=== PATIENT | male | born 1975 ===

== ENCOUNTER 2019-02-19 14:39 | Observation (INO) ==
[2019-02-19] MEDS ORDERED: ACETAMINOPHEN 325 MG TABLET PO PRN (17:01)
[2019-02-19] MEDS ORDERED: ONDANSETRON 4 MG/2 ML VIAL IV PRN (17:01)
[2019-02-19 17:20] LABS: Basophils % 0.6 % (0.0-0.8); Eosinophils % 0.5 % (0.00-10.9); Hematocrit 45.1 VOL% (42.0-52.0); Hemoglobin 15.1 GM/DL (14.0-18.0); Immature Granulocytes % 0.5 %; Immature Granulocytes Absolute 0.03 #; Lymphocytes % 15.2 % (21.2-54.2); Mean Corpuscular HGB Conc 33.5 GM/DL (32-36); Mean Corpuscular Volume 90.2 FL (87-102); Mean Platelet Volume 9.8 FL (9.6-12.0); Monocytes % 7.1 % (1.7-12.7); Neutrophils % 76.1 % (38.7-73.9); Platelet Count 168 T/CUMM (130-400); Red Cell Distribution Width 12.9 % (9.3-17.3); White Blood Count 6.6 T/CUMM (4-12)
[2019-02-19 17:44] LABS: Troponin I < 0.015 NG/ML (0.00-0.045)
[2019-02-19] MEDS ORDERED: MAGNESIUM SULF RIDER 4 GM in PREMIX 1 EACH IV PRN (18:06)
[2019-02-19] MEDS ORDERED: MAGNESIUM SULF RIDER 2 GM in PREMIX 1 EACH IV PRN (18:06)
[2019-02-19] MEDS ORDERED: LORazepam 2 MG/1 ML VIAL IV PRN (18:07)
[2019-02-19] MEDS ORDERED: ALBUTEROL 2.5 MG/3 ML NEB RESP TX PRN (18:08)
[2019-02-19 18:21] LABS: Calcium 8.3 MG/DL (8.5-10.1); Osmolality,Calculated 274.5 MOS/KG (273-304)
[2019-02-19] MEDS: amLODIPine 10 MG TABLET PO SCH (18:47)
[2019-02-19 20:18] LABS: Troponin I < 0.015 NG/ML (0.00-0.045)
[2019-02-19] MEDS: ZALEPLON 5 MG CAPSULE PO PRN (23:47)
[2019-02-20 00:08] LABS: Troponin I < 0.015 NG/ML (0.00-0.045)
[2019-02-20 04:12] LABS: Basophils # 0.1 10*3/uL (0.0-0.2); Eosinophils # 0.2 10*3/uL (0.0-0.87); Eosinophils % 2.9 % (0.00-10.9); Hematocrit 44.6 VOL% (42.0-52.0); Immature Granulocytes % 0.4 %; Immature Granulocytes Absolute 0.02 #; Lymphocytes # 1.2 10*3/uL (1.4-4.0); Lymphocytes % 22.5 % (21.2-54.2); Mean Corpuscular HGB Conc 33.6 GM/DL (32-36); Mean Corpuscular Volume 89.9 FL (87-102); Mean Platelet Volume 10.4 FL (9.6-12.0); Monocytes % 8.7 % (1.7-12.7); Neutrophils % 64.5 % (38.7-73.9); Platelet Count 160 T/CUMM (130-400); Red Blood Count 4.96 MC/CUMM (3.8-5.5); Red Cell Distribution Width 12.6 % (9.3-17.3); White Blood Count 5.2 T/CUMM (4-12)
[2019-02-20 04:18] LABS: PT Patient Result 10.6 SECS (9.6-12.2); Partial Thromboplastin Time 26.8 SECS (20.8-36.0)
[2019-02-20 04:40] LABS: Calcium 8.5 MG/DL (8.5-10.1); Osmolality,Calculated 277.4 MOS/KG (273-304); Risk Ratio 3.24; Thyroid Stimulating Hormone 5.59 uIU/ml (0.358-3.74); VLDL CHOLESTEROL 27.4 MG/DL
[2019-02-20 04:44] LABS: Folate 12.2 NG/ML (5.4-24.0)
[2019-02-20] MEDS: PANTOPRAZOLE 40 MG TABLET PO SCH (10:09)
[2019-02-20] MEDS: amLODIPine 10 MG TABLET PO SCH (10:09)
[2019-02-20] MEDS: THIAMINE 100 MG TABLET PO SCH (10:09)
[2019-02-20] MEDS: FOLIC ACID 1 MG TABLET PO SCH (10:09)
[2019-02-20] MEDS: MULTIVITAMIN (CENTRUM) TABLET PO SCH (10:09)
[2019-02-20] MEDS: POTASSIUM CHLORIDE 20 MEQ TABLET PO PRN ×3 (10:09→16:52)
[2019-02-20] MEDS: SODIUM CHLORIDE 0.9% 1,000 ML IV SCH (14:29)
[2019-02-20] MEDS: ZALEPLON 5 MG CAPSULE PO PRN (22:38)
[2019-02-21] MEDS: SODIUM CHLORIDE 0.9% 1,000 ML IV SCH (02:47)
[2019-02-21 04:25] LABS: Basophils % 0.6 % (0.0-0.8); Eosinophils # 0.2 10*3/uL (0.0-0.87); Eosinophils % 3.5 % (0.00-10.9); Hematocrit 42.6 VOL% (42.0-52.0); Hemoglobin 14.2 GM/DL (14.0-18.0); Immature Granulocytes % 0.4 %; Immature Granulocytes Absolute 0.02 #; Lymphocytes # 1.3 10*3/uL (1.4-4.0); Lymphocytes % 24.4 % (21.2-54.2); Mean Corpuscular HGB Conc 33.3 GM/DL (32-36); Mean Corpuscular Volume 90.6 FL (87-102); Mean Platelet Volume 10.6 FL (9.6-12.0); Monocytes % 6.8 % (1.7-12.7); Neutrophils % 64.3 % (38.7-73.9); Platelet Count 154 T/CUMM (130-400); Red Cell Distribution Width 12.6 % (9.3-17.3); White Blood Count 5.2 T/CUMM (4-12)
[2019-02-21 05:00] LABS: Calcium 8.4 MG/DL (8.5-10.1); Osmolality,Calculated 276.4 MOS/KG (273-304)
[2019-02-21 07:42] VITALS: BP 129/66
[2019-02-21] MEDS: PANTOPRAZOLE 40 MG TABLET PO SCH (08:49)
[2019-02-21] MEDS: THIAMINE 100 MG TABLET PO SCH (08:49)
[2019-02-21] MEDS: MULTIVITAMIN (CENTRUM) TABLET PO SCH (08:49)
[2019-02-21] MEDS: amLODIPine 10 MG TABLET PO SCH (08:49)
[2019-02-21] MEDS: FOLIC ACID 1 MG TABLET PO SCH (08:49)
[2019-02-21] MEDS ORDERED: SUMAtriptan 25 MG TABLET PO ONE (10:07)
== END 2019-02-21 13:36 | disposition home or self-care (01) ==
LOC: N.TELES
PROVIDERS: ADMIT Internal Medicine; ATTEND Internal Medicine

== ENCOUNTER 2020-11-27 13:37 | Inpatient (IN) ==
[2020-11-27] MEDS ORDERED: ALBUTEROL 2.5 MG/3 ML NEB RESP TX PRN (15:48)
[2020-11-27] MEDS ORDERED: chlordiazePOXIDE 10 MG CAPSULE PO PRN (15:53)
[2020-11-27] MEDS ORDERED: PNEUMOCOCCAL VACCINE (23 VALENT) 0.5 ML VIAL IM ONE (15:56)
[2020-11-27] MEDS ORDERED: SODIUM CHLORIDE 0.9% 1,000 ML IV PRN (16:00)
[2020-11-27] MEDS ORDERED: POTASSIUM CHLORIDE 20 MEQ TABLET PO ONE (16:08)
[2020-11-27] MEDS: SODIUM CHLORIDE 0.9% 1,000 ML IV SCH (16:09)
[2020-11-27 16:23] LABS: Basophils % 0.5 % (0.0-0.8); Hematocrit 21.3 VOL% (42.0-52.0); Hemoglobin 6.9 GM/DL (14.0-18.0); Immature Granulocytes % 0.5 %; Immature Granulocytes Absolute 0.04 #; Lymphocytes # 0.5 10*3/uL (1.4-4.0); Lymphocytes % 6.6 % (21.2-54.2); Mean Corpuscular HGB Conc 32.4 GM/DL (32-36); Mean Corpuscular Volume 87.7 FL (87-102); Mean Platelet Volume 11.3 FL (9.6-12.0); Monocytes % 5.7 % (1.7-12.7); Neutrophils % 86.7 % (38.7-73.9); Platelet Count 95 T/CUMM (130-400); Red Blood Count 2.43 MC/CUMM (3.8-5.5); Red Cell Distribution Width 15.1 % (9.3-17.3); White Blood Count 7.8 T/CUMM (4-12)
[2020-11-27 16:46] LABS: Albumin 2.6 G/DL (3.4-5.0); Bilirubin,Total 1.3 MG/DL (0.2-1.0); Calcium 7.9 MG/DL (8.5-10.1); Osmolality,Calculated 300.6 MOS/KG (273-304); Potassium 3.7 MMOL/L (3.5-5.1)
[2020-11-27 16:57] LABS: INR 1.2
[2020-11-27] MEDS: MULTIVITAMIN (BEROCCA) TABLET PO SCH (17:37)
[2020-11-27] MEDS: FOLIC ACID INJ 1 MG in SYRINGE 1 EACH IV SCH (17:37)
[2020-11-27] MEDS: PANTOPRAZOLE 40 MG VIAL IV SCH (17:38)
[2020-11-27] MEDS ORDERED: OCTREOTIDE 100 MCG/ML SYRINGE IV ONE (18:43)
[2020-11-27] MEDS: ALBUTEROL 2.5 MG/3 ML NEB RESP TX SCH (19:08)
[2020-11-27] MEDS: OCTREOTIDE 500 MCG in SODIUM CHLORIDE 0.9% 99 ML IV SCH (19:09)
[2020-11-28] MEDS: ALBUTEROL 2.5 MG/3 ML NEB RESP TX SCH ×4 (00:52→18:01)
[2020-11-28 01:07] LABS: Hematocrit 22.1 VOL% (42.0-52.0); Hemoglobin 7.1 GM/DL (14.0-18.0)
[2020-11-28] MEDS: OCTREOTIDE 500 MCG in SODIUM CHLORIDE 0.9% 99 ML IV SCH ×2 (05:15→16:10)
[2020-11-28] MEDS: PANTOPRAZOLE 40 MG VIAL IV SCH ×2 (05:17→16:47)
[2020-11-28 06:00] LABS: Hematocrit 21.7 VOL% (42.0-52.0)
[2020-11-28] MEDS: SODIUM CHLORIDE 0.9% 1,000 ML IV SCH ×3 (07:06→13:09)
[2020-11-28] MEDS ORDERED: SODIUM CHLORIDE 0.9% 1,000 ML IV PRN (07:27)
[2020-11-28] MEDS: THIAMINE 200 MG/2 ML VIAL IV SCH (08:05)
[2020-11-28] MEDS: FOLIC ACID INJ 1 MG in SYRINGE 1 EACH IV SCH (08:05)
[2020-11-28] MEDS: MULTIVITAMIN (BEROCCA) TABLET PO SCH (08:06)
[2020-11-28 09:02] LABS: Calcium 7.7 MG/DL (8.5-10.1); Osmolality,Calculated 300.4 MOS/KG (273-304); Potassium 3.8 MMOL/L (3.5-5.1)
[2020-11-28] MEDS ORDERED: LACTATED RINGERS 1,000 ML IV SCH (09:30)
[2020-11-28] MEDS ORDERED: propofoL 200 MG/20 ML VIAL IV ONE (14:26)
[2020-11-28] MEDS ORDERED: LIDOCAINE 2% 5 ML VIAL ONE (14:26)
[2020-11-28 16:34] LABS: Hematocrit 27.2 VOL% (42.0-52.0)
[2020-11-28 16:36] LABS: Hemoglobin 8.5 GM/DL (14.0-18.0)
[2020-11-29] MEDS: ALBUTEROL 2.5 MG/3 ML NEB RESP TX SCH ×4 (01:34→20:24)
[2020-11-29] MEDS: PANTOPRAZOLE 40 MG VIAL IV SCH ×2 (04:18→17:53)
[2020-11-29 06:16] LABS: Basophils % 0.6 % (0.0-0.8); Eosinophils # 0.1 10*3/uL (0.0-0.87); Eosinophils % 2.8 % (0.00-10.9); Hematocrit 24.3 VOL% (42.0-52.0); Hemoglobin 7.6 GM/DL (14.0-18.0); Immature Granulocytes % 0.4 %; Immature Granulocytes Absolute 0.02 #; Lymphocytes # 0.9 10*3/uL (1.4-4.0); Lymphocytes % 17.1 % (21.2-54.2); Mean Corpuscular HGB Conc 31.3 GM/DL (32-36); Mean Corpuscular Volume 90.7 FL (87-102); Mean Platelet Volume 11.5 FL (9.6-12.0); Monocytes % 7.6 % (1.7-12.7); Neutrophils % 71.5 % (38.7-73.9); Platelet Count 79 T/CUMM (130-400); Red Blood Count 2.68 MC/CUMM (3.8-5.5); Red Cell Distribution Width 14.7 % (9.3-17.3)
[2020-11-29 06:35] LABS: Hypochromasia 1+; Microcytosis 1+; Platelet Estimate Decreased
[2020-11-29 06:43] LABS: Albumin 2.4 G/DL (3.4-5.0); Bilirubin,Total 1.2 MG/DL (0.2-1.0); Calcium 7.3 MG/DL (8.5-10.1); Osmolality,Calculated 284.3 MOS/KG (273-304); Potassium 3.2 MMOL/L (3.5-5.1); Total Protein 5.4 G/DL (6.4-8.2)
[2020-11-29] MEDS: MULTIVITAMIN (BEROCCA) TABLET PO SCH (09:33)
[2020-11-29] MEDS: FOLIC ACID INJ 1 MG in SYRINGE 1 EACH IV SCH (09:34)
[2020-11-29] MEDS: THIAMINE 200 MG/2 ML VIAL IV SCH (09:34)
[2020-11-29] MEDS ORDERED: IBUPROFEN 400 MG TABLET PO PRN (09:36)
[2020-11-29] MEDS ORDERED: CALCIUM GLUCONATE 1,000 MG in SODIUM CHLORIDE 0.9% 100 ML IV ONE (10:00)
[2020-11-29] MEDS ORDERED: POTASSIUM CHLORIDE 20 MEQ TABLET PO ONE (10:30)
[2020-11-29] MEDS: amLODIPine 10 MG TABLET PO SCH (12:50)
[2020-11-29 16:13] LABS: Hemoglobin 8.7 GM/DL (14.0-18.0)
[2020-11-29] MEDS ORDERED: POTASSIUM CHLORIDE RIDER 10 MEQ/100 ML PREMIX IV PRN (18:35)
[2020-11-29] MEDS: MORPHINE 4 MG/1 ML VIAL IV PRN (23:00)
[2020-11-30] MEDS: ALBUTEROL 2.5 MG/3 ML NEB RESP TX SCH ×4 (00:44→19:21)
[2020-11-30] MEDS: PANTOPRAZOLE 40 MG VIAL IV SCH ×3 (03:51→21:05)
[2020-11-30 04:59] LABS: Basophils % 0.4 % (0.0-0.8); Eosinophils # 0.2 10*3/uL (0.0-0.87); Eosinophils % 2.5 % (0.00-10.9); Hematocrit 26.7 VOL% (42.0-52.0); Hemoglobin 8.8 GM/DL (14.0-18.0); Immature Granulocytes % 0.4 %; Immature Granulocytes Absolute 0.03 #; Lymphocytes # 1.1 10*3/uL (1.4-4.0); Lymphocytes % 15.7 % (21.2-54.2); Mean Corpuscular Volume 87.5 FL (87-102); Mean Platelet Volume 11.5 FL (9.6-12.0); Monocytes % 7.5 % (1.7-12.7); NRBC # 0.02 10*3/uL; Neutrophils % 73.5 % (38.7-73.9); Platelet Count 85 T/CUMM (130-400); Red Blood Count 3.05 MC/CUMM (3.8-5.5); Red Cell Distribution Width 14.4 % (9.3-17.3); White Blood Count 6.7 T/CUMM (4-12)
[2020-11-30 05:18] LABS: Hypochromasia 1+
[2020-11-30 05:19] LABS: Microcytosis 1+; Platelet Estimate Decreased
[2020-11-30 05:27] LABS: Albumin 2.6 G/DL (3.4-5.0); Bilirubin,Total 1.1 MG/DL (0.2-1.0); Calcium 7.7 MG/DL (8.5-10.1); Osmolality,Calculated 275.5 MOS/KG (273-304); Potassium 3.4 MMOL/L (3.5-5.1); Total Protein 5.8 G/DL (6.4-8.2)
[2020-11-30] MEDS: MORPHINE 4 MG/1 ML VIAL IV PRN ×2 (06:00→21:05)
[2020-11-30] MEDS: ONDANSETRON 4 MG/2 ML VIAL IV PRN ×2 (06:01→21:04)
[2020-11-30] MEDS: MULTIVITAMIN (BEROCCA) TABLET PO SCH (08:54)
[2020-11-30] MEDS: amLODIPine 10 MG TABLET PO SCH (08:55)
[2020-11-30] MEDS: FOLIC ACID INJ 1 MG in SYRINGE 1 EACH IV SCH (08:55)
[2020-11-30] MEDS: THIAMINE 200 MG/2 ML VIAL IV SCH (08:55)
[2020-11-30] MEDS ORDERED: amLODIPine 10 MG TABLET PO SCH (09:00)
[2020-11-30] MEDS ORDERED: POTASSIUM CHLORIDE 20 MEQ TABLET PO PRN (10:35)
[2020-12-01] MEDS: ALBUTEROL 2.5 MG/3 ML NEB RESP TX SCH ×4 (00:33→19:41)
[2020-12-01 05:21] LABS: Basophils % 0.4 % (0.0-0.8); Eosinophils # 0.1 10*3/uL (0.0-0.87); Eosinophils % 1.5 % (0.00-10.9); Hematocrit 26.5 VOL% (42.0-52.0); Hemoglobin 8.9 GM/DL (14.0-18.0); Immature Granulocytes % 0.4 %; Immature Granulocytes Absolute 0.03 #; Lymphocytes % 12.9 % (21.2-54.2); Mean Corpuscular HGB Conc 33.6 GM/DL (32-36); Mean Corpuscular Volume 88.9 FL (87-102); Mean Platelet Volume 11.6 FL (9.6-12.0); Monocytes % 8.2 % (1.7-12.7); Neutrophils % 76.6 % (38.7-73.9); Platelet Count 87 T/CUMM (130-400); Red Blood Count 2.98 MC/CUMM (3.8-5.5); Red Cell Distribution Width 14.7 % (9.3-17.3); White Blood Count 7.8 T/CUMM (4-12)
[2020-12-01 05:29] LABS: INR 1.1; PT Patient Result 12.3 SECS (10.5-12.0)
[2020-12-01 05:46] LABS: Hypochromasia 1+; Microcytosis 1+; Platelet Estimate Decreased
[2020-12-01 05:54] LABS: Albumin 2.6 G/DL (3.4-5.0); Bilirubin,Total 1.1 MG/DL (0.2-1.0); Calcium 8.2 MG/DL (8.5-10.1); Potassium 3.8 MMOL/L (3.5-5.1)
[2020-12-01] MEDS: amLODIPine 10 MG TABLET PO SCH (09:24)
[2020-12-01] MEDS: MULTIVITAMIN (BEROCCA) TABLET PO SCH (09:25)
[2020-12-01] MEDS: PANTOPRAZOLE 40 MG VIAL IV SCH ×2 (09:26→21:05)
[2020-12-01] MEDS: THIAMINE 200 MG/2 ML VIAL IV SCH (09:31)
[2020-12-01] MEDS: FOLIC ACID INJ 1 MG in SYRINGE 1 EACH IV SCH (09:33)
[2020-12-01] MEDS: PIPERACILLIN/TAZOBACTAM 3,375 MG in SODIUM CHLORIDE 0.9% 100 ML IV SCH ×2 (16:54→23:06)
[2020-12-01] MEDS: ONDANSETRON 4 MG/2 ML VIAL IV PRN (21:06)
[2020-12-01] MEDS: MORPHINE 4 MG/1 ML VIAL IV PRN (21:06)
[2020-12-02] MEDS: ALBUTEROL 2.5 MG/3 ML NEB RESP TX SCH ×2 (00:06→07:52)
[2020-12-02 05:40] LABS: Basophils % 0.4 % (0.0-0.8); Eosinophils # 0.1 10*3/uL (0.0-0.87); Eosinophils % 1.1 % (0.00-10.9); Hematocrit 25.9 VOL% (42.0-52.0); Hemoglobin 8.3 GM/DL (14.0-18.0); Immature Granulocytes % 0.5 %; Immature Granulocytes Absolute 0.04 #; Lymphocytes # 1.1 10*3/uL (1.4-4.0); Lymphocytes % 13.7 % (21.2-54.2); Mean Corpuscular Volume 90.2 FL (87-102); Mean Platelet Volume 11.5 FL (9.6-12.0); Monocytes % 11.7 % (1.7-12.7); Neutrophils % 72.6 % (38.7-73.9); Platelet Count 103 T/CUMM (130-400); Red Blood Count 2.87 MC/CUMM (3.8-5.5); Red Cell Distribution Width 14.8 % (9.3-17.3); White Blood Count 8.2 T/CUMM (4-12)
[2020-12-02 05:59] LABS: Albumin 2.4 G/DL (3.4-5.0); Bilirubin,Total 0.9 MG/DL (0.2-1.0); Calcium 7.9 MG/DL (8.5-10.1); Potassium 3.7 MMOL/L (3.5-5.1)
[2020-12-02 06:24] LABS: Anisocytosis 1+; Platelet Estimate Adequate
[2020-12-02] MEDS: PANTOPRAZOLE 40 MG VIAL IV SCH ×2 (09:11→21:19)
[2020-12-02] MEDS: THIAMINE 200 MG/2 ML VIAL IV SCH (09:11)
[2020-12-02] MEDS: amLODIPine 10 MG TABLET PO SCH (09:12)
[2020-12-02] MEDS: MULTIVITAMIN (BEROCCA) TABLET PO SCH (09:12)
[2020-12-02] MEDS: PIPERACILLIN/TAZOBACTAM 3,375 MG in SODIUM CHLORIDE 0.9% 100 ML IV SCH (09:12)
[2020-12-02] MEDS: FOLIC ACID INJ 1 MG in SYRINGE 1 EACH IV SCH (13:40)
[2020-12-03] MEDS: ALBUTEROL 2.5 MG/3 ML NEB RESP TX SCH ×6 (02:05→19:14)
[2020-12-03 06:00] LABS: Basophils % 0.3 % (0.0-0.8); Eosinophils # 0.1 10*3/uL (0.0-0.87); Eosinophils % 1.9 % (0.00-10.9); Hematocrit 25.6 VOL% (42.0-52.0); Hemoglobin 8.4 GM/DL (14.0-18.0); Immature Granulocytes % 0.5 %; Immature Granulocytes Absolute 0.04 #; Lymphocytes # 0.9 10*3/uL (1.4-4.0); Lymphocytes % 12.3 % (21.2-54.2); Mean Corpuscular HGB Conc 32.8 GM/DL (32-36); Mean Corpuscular Volume 89.5 FL (87-102); Mean Platelet Volume 11.5 FL (9.6-12.0); Monocytes % 11.4 % (1.7-12.7); Neutrophils % 73.6 % (38.7-73.9); Platelet Count 105 T/CUMM (130-400); Red Blood Count 2.86 MC/CUMM (3.8-5.5); Red Cell Distribution Width 14.7 % (9.3-17.3); White Blood Count 7.5 T/CUMM (4-12)
[2020-12-03 06:28] LABS: Albumin 2.5 G/DL (3.4-5.0); Bilirubin,Total 0.8 MG/DL (0.2-1.0); Osmolality,Calculated 276.7 MOS/KG (273-304); Potassium 3.4 MMOL/L (3.5-5.1); Total Protein 6.3 G/DL (6.4-8.2)
[2020-12-03] MEDS: MULTIVITAMIN (BEROCCA) TABLET PO SCH (09:31)
[2020-12-03] MEDS: FOLIC ACID INJ 1 MG in SYRINGE 1 EACH IV SCH (09:31)
[2020-12-03] MEDS: amLODIPine 10 MG TABLET PO SCH (09:32)
[2020-12-03] MEDS: THIAMINE 200 MG/2 ML VIAL IV SCH (09:32)
[2020-12-03] MEDS: PANTOPRAZOLE 40 MG VIAL IV SCH ×2 (09:32→21:06)
[2020-12-03] MEDS: LACTULOSE 20 GM/30 ML UDCUP PO SCH ×2 (15:29→21:07)
[2020-12-03] MEDS: metroNIDAZOLE INJ 500 MG/100 ML PREMIX IV SCH ×2 (15:31→21:06)
[2020-12-03] MEDS: cefTRIAXone 1,000 MG in SODIUM CHLORIDE 0.9% 100 ML IV SCH (16:50)
[2020-12-03 18:19] LABS: Bilirubin,Urine Negative (Negative); Blood, Urine Negative (Negative); Glucose,Urine (UA) Negative (Negative); Ketones,Urine Negative (Negative); Mucus,Urine Occasional /LPF (Occasional); Nitrite,Urine Negative (Negative); Protein,Urine Negative; RBC,Urine <1 /HPF (0-4); Squamous Epithelial Cell,Urine Occasional /HPF (0-10); Urine Appearance CLEAR (Clear); Urine Color Yellow (Yellow); Urine Urobilinogen < 2.0 EU/DL (0.2-1.0)
[2020-12-04] MEDS: ALBUTEROL 2.5 MG/3 ML NEB RESP TX SCH ×4 (01:07→21:29)
[2020-12-04] MEDS: metroNIDAZOLE INJ 500 MG/100 ML PREMIX IV SCH ×3 (06:06→21:04)
[2020-12-04 06:07] LABS: Basophils % 0.5 % (0.0-0.8); Eosinophils # 0.1 10*3/uL (0.0-0.87); Eosinophils % 1.9 % (0.00-10.9); Hematocrit 26.6 VOL% (42.0-52.0); Hemoglobin 8.7 GM/DL (14.0-18.0); Immature Granulocytes % 0.5 %; Immature Granulocytes Absolute 0.03 #; Lymphocytes # 0.9 10*3/uL (1.4-4.0); Lymphocytes % 14.5 % (21.2-54.2); Mean Corpuscular HGB Conc 32.7 GM/DL (32-36); Mean Corpuscular Volume 89.9 FL (87-102); Mean Platelet Volume 11.3 FL (9.6-12.0); Monocytes % 11.6 % (1.7-12.7); Platelet Count 147 T/CUMM (130-400); Red Blood Count 2.96 MC/CUMM (3.8-5.5); Red Cell Distribution Width 14.7 % (9.3-17.3); White Blood Count 6.5 T/CUMM (4-12)
[2020-12-04 06:21] LABS: Albumin 2.5 G/DL (3.4-5.0); Bilirubin,Total 1.1 MG/DL (0.2-1.0); Osmolality,Calculated 277.4 MOS/KG (273-304); Potassium 3.6 MMOL/L (3.5-5.1); Total Protein 6.5 G/DL (6.4-8.2)
[2020-12-04] MEDS: MULTIVITAMIN (BEROCCA) TABLET PO SCH (09:59)
[2020-12-04] MEDS: THIAMINE 200 MG/2 ML VIAL IV SCH (09:59)
[2020-12-04] MEDS: LACTULOSE 20 GM/30 ML UDCUP PO SCH ×2 (09:59→21:04)
[2020-12-04] MEDS: FOLIC ACID INJ 1 MG in SYRINGE 1 EACH IV SCH (10:00)
[2020-12-04] MEDS: amLODIPine 10 MG TABLET PO SCH (10:00)
[2020-12-04] MEDS: PANTOPRAZOLE 40 MG VIAL IV SCH ×2 (10:00→21:04)
[2020-12-04] MEDS: cefTRIAXone 1,000 MG in SODIUM CHLORIDE 0.9% 100 ML IV SCH (17:30)
[2020-12-05] MEDS: metroNIDAZOLE INJ 500 MG/100 ML PREMIX IV SCH (05:14)
[2020-12-05] MEDS: ALBUTEROL 2.5 MG/3 ML NEB RESP TX SCH ×3 (05:48→12:50)
[2020-12-05 07:36] LABS: Basophils % 0.6 % (0.0-0.8); Eosinophils # 0.2 10*3/uL (0.0-0.87); Eosinophils % 2.4 % (0.00-10.9); Hematocrit 28.7 VOL% (42.0-52.0); Hemoglobin 9.5 GM/DL (14.0-18.0); Immature Granulocytes % 0.5 %; Immature Granulocytes Absolute 0.03 #; Lymphocytes # 0.9 10*3/uL (1.4-4.0); Lymphocytes % 14.9 % (21.2-54.2); Mean Corpuscular HGB Conc 33.1 GM/DL (32-36); Mean Corpuscular Volume 88.9 FL (87-102); Mean Platelet Volume 10.8 FL (9.6-12.0); Neutrophils % 70.6 % (38.7-73.9); Platelet Count 177 T/CUMM (130-400); Red Blood Count 3.23 MC/CUMM (3.8-5.5); Red Cell Distribution Width 14.4 % (9.3-17.3); White Blood Count 6.3 T/CUMM (4-12)
[2020-12-05 08:11] VITALS: BP 121/64
[2020-12-05 08:17] LABS: Calcium 8.5 MG/DL (8.5-10.1); Osmolality,Calculated 272.7 MOS/KG (273-304); Potassium 3.7 MMOL/L (3.5-5.1)
[2020-12-05] MEDS: FOLIC ACID INJ 1 MG in SYRINGE 1 EACH IV SCH (08:25)
[2020-12-05] MEDS: PANTOPRAZOLE 40 MG VIAL IV SCH (08:25)
[2020-12-05] MEDS: THIAMINE 200 MG/2 ML VIAL IV SCH (08:25)
[2020-12-05] MEDS: amLODIPine 10 MG TABLET PO SCH (10:05)
[2020-12-05] MEDS: MULTIVITAMIN (BEROCCA) TABLET PO SCH (10:05)
[2020-12-05] MEDS: LACTULOSE 20 GM/30 ML UDCUP PO SCH (10:05)
== END 2020-12-05 13:40 | disposition home or self-care (01) | DRG 378 ==
LOC: N.CC 15:22 → SUATTDRO 15:22 → N.4E 11-29 13:10
PROVIDERS: ADMIT Family Medicine; ATTEND Internal Medicine

== ENCOUNTER 2020-12-11 23:37 | Inpatient (IN) ==
[2020-12-12] MEDS ORDERED: PANTOPRAZOLE INJ 80 MG in SODIUM CHLORIDE 0.9% 100 ML IV ONE (00:24)
[2020-12-12] MEDS ORDERED: ONDANSETRON 4 MG/2 ML VIAL IV STA (00:24)
[2020-12-12] MEDS ORDERED: SODIUM CHLORIDE 0.9% 1,000 ML IV STA (00:24)
[2020-12-12 01:59] LABS: Basophils # 0.1 10*3/uL (0.0-0.2); Basophils % 0.6 % (0.0-0.8); Eosinophils % 0.3 % (0.00-10.9); Immature Granulocytes % 0.8 %; Immature Granulocytes Absolute 0.06 #; Lymphocytes # 1.3 10*3/uL (1.4-4.0); Lymphocytes % 16.9 % (21.2-54.2); Mean Corpuscular HGB Conc 31.8 GM/DL (32-36); Mean Platelet Volume 10.9 FL (9.6-12.0); Monocytes % 10.7 % (1.7-12.7); Neutrophils % 70.7 % (38.7-73.9); Platelet Count 222 T/CUMM (130-400); Red Blood Count 2.53 MC/CUMM (3.8-5.5); Red Cell Distribution Width 15.1 % (9.3-17.3); White Blood Count 7.8 T/CUMM (4-12)
[2020-12-12 02:22] LABS: Albumin 2.9 G/DL (3.4-5.0); Bilirubin,Total 0.4 MG/DL (0.2-1.0); Calcium 8.1 MG/DL (8.5-10.1); Osmolality,Calculated 297.6 MOS/KG (273-304); Potassium 3.3 MMOL/L (3.5-5.1)
[2020-12-12] MEDS: PANTOPRAZOLE INJ 200 MG in SODIUM CHLORIDE 0.9% 250 ML IV SCH (03:00)
[2020-12-12] MEDS ORDERED: ONDANSETRON 4 MG/2 ML VIAL IV PRN (04:37)
[2020-12-12] MEDS ORDERED: DEXTROSE 50% 25 GM/50 ML VIAL IV PRN (04:37)
[2020-12-12] MEDS ORDERED: GLUCAGON 1 MG VIAL IM PRN (04:37)
[2020-12-12] MEDS ORDERED: SODIUM CHLORIDE 0.9% 1,000 ML IV PRN ×2 (04:40→06:43)
[2020-12-12] MEDS ORDERED: PANTOPRAZOLE INJ 200 MG in SODIUM CHLORIDE 0.9% 250 ML IV SCH (05:00)
[2020-12-12] MEDS ORDERED: SODIUM CHLORIDE 0.9% 1,000 ML IV SCH (05:00)
[2020-12-12] MEDS ORDERED: POTASSIUM CHLORIDE RIDER 10 MEQ/100 ML PREMIX IV PRN (08:34)
[2020-12-12] MEDS ORDERED: LORazepam 2 MG/1 ML VIAL IV PRN (08:56)
[2020-12-12] MEDS: amLODIPine 10 MG TABLET PO SCH (10:36)
[2020-12-12] MEDS: MULTIVITAMIN (CENTRUM) TABLET PO SCH (10:36)
[2020-12-12] MEDS: FOLIC ACID 1 MG TABLET PO SCH (10:36)
[2020-12-12] MEDS: LACTULOSE 20 GM/30 ML UDCUP PO SCH ×3 (10:36→21:27)
[2020-12-12] MEDS: SODIUM CHLOR 0.45% KCL 20 MEQ 20 MEQ/1,000 ML BAG IV SCH ×2 (10:37→23:26)
[2020-12-12] MEDS: THIAMINE 100 MG TABLET PO SCH (10:37)
[2020-12-12 16:26] LABS: Hematocrit 21.1 VOL% (42.0-52.0); Hemoglobin 6.6 GM/DL (14.0-18.0)
[2020-12-12] MEDS: ACETAMINOPHEN 325 MG TABLET PO PRN (23:27)
[2020-12-13 00:41] LABS: Hematocrit 21.6 VOL% (42.0-52.0); Hemoglobin 6.9 GM/DL (14.0-18.0)
[2020-12-13 05:39] LABS: Basophils % 0.8 % (0.0-0.8); Eosinophils # 0.1 10*3/uL (0.0-0.87); Eosinophils % 2.7 % (0.00-10.9); Hematocrit 21.9 VOL% (42.0-52.0); Hemoglobin 6.7 GM/DL (14.0-18.0); Immature Granulocytes % 0.6 %; Immature Granulocytes Absolute 0.03 #; Lymphocytes # 0.9 10*3/uL (1.4-4.0); Lymphocytes % 17.5 % (21.2-54.2); Mean Corpuscular HGB Conc 30.6 GM/DL (32-36); Mean Platelet Volume 10.6 FL (9.6-12.0); Monocytes % 7.6 % (1.7-12.7); Neutrophils % 70.8 % (38.7-73.9); Platelet Count 155 T/CUMM (130-400); Red Blood Count 2.46 MC/CUMM (3.8-5.5); Red Cell Distribution Width 15.5 % (9.3-17.3); White Blood Count 5.1 T/CUMM (4-12)
[2020-12-13 06:14] LABS: Albumin 2.6 G/DL (3.4-5.0); Bilirubin,Total 0.8 MG/DL (0.2-1.0); Potassium 3.2 MMOL/L (3.5-5.1); Total Protein 5.9 G/DL (6.4-8.2)
[2020-12-13] MEDS ORDERED: SODIUM CHLORIDE 0.9% 1,000 ML IV PRN (07:35)
[2020-12-13] MEDS ORDERED: MAGNESIUM SULF RIDER 2 GM/50 ML PREMIX IV PRN (07:38)
[2020-12-13] MEDS ORDERED: MAGNESIUM SULF RIDER 4 GM/100 ML PREMIX IV PRN (07:38)
[2020-12-13] MEDS: MULTIVITAMIN (CENTRUM) TABLET PO SCH (09:36)
[2020-12-13] MEDS: LACTULOSE 20 GM/30 ML UDCUP PO SCH ×3 (09:36→22:18)
[2020-12-13] MEDS: amLODIPine 10 MG TABLET PO SCH (09:36)
[2020-12-13] MEDS: FOLIC ACID 1 MG TABLET PO SCH (09:36)
[2020-12-13] MEDS: THIAMINE 100 MG TABLET PO SCH (09:36)
[2020-12-13] MEDS: SODIUM CHLOR 0.45% KCL 20 MEQ 20 MEQ/1,000 ML BAG IV SCH (17:24)
[2020-12-13] MEDS: PANTOPRAZOLE INJ 200 MG in SODIUM CHLORIDE 0.9% 250 ML IV SCH (23:54)
[2020-12-14 02:51] LABS: Basophils % 0.5 % (0.0-0.8); Eosinophils # 0.2 10*3/uL (0.0-0.87); Hematocrit 26.5 VOL% (42.0-52.0); Hemoglobin 8.6 GM/DL (14.0-18.0); Immature Granulocytes % 0.7 %; Immature Granulocytes Absolute 0.05 #; Lymphocytes % 13.4 % (21.2-54.2); Mean Corpuscular HGB Conc 32.5 GM/DL (32-36); Mean Corpuscular Volume 86.6 FL (87-102); Mean Platelet Volume 10.6 FL (9.6-12.0); NRBC # 0.02 10*3/uL; Neutrophils % 77.4 % (38.7-73.9); Platelet Count 147 T/CUMM (130-400); Red Blood Count 3.06 MC/CUMM (3.8-5.5); Red Cell Distribution Width 15.2 % (9.3-17.3); White Blood Count 7.6 T/CUMM (4-12)
[2020-12-14 03:11] LABS: Albumin 2.6 G/DL (3.4-5.0); Bilirubin,Total 0.8 MG/DL (0.20-1.00); Calcium 7.7 MG/DL (8.5-10.1); Osmolality,Calculated 279.4 MOS/KG (273-304); Potassium 3.2 MMOL/L (3.5-5.1); Total Protein 6.4 G/DL (6.4-8.2)
[2020-12-14] MEDS: ACETAMINOPHEN 325 MG TABLET PO PRN (05:39)
[2020-12-14] MEDS: SODIUM CHLOR 0.45% KCL 20 MEQ 20 MEQ/1,000 ML BAG IV SCH ×3 (06:38→13:13)
[2020-12-14] MEDS: FOLIC ACID 1 MG TABLET PO SCH (09:17)
[2020-12-14] MEDS: LACTULOSE 20 GM/30 ML UDCUP PO SCH ×3 (09:17→20:28)
[2020-12-14] MEDS: PANTOPRAZOLE INJ 200 MG in SODIUM CHLORIDE 0.9% 250 ML IV SCH (09:17)
[2020-12-14] MEDS: amLODIPine 10 MG TABLET PO SCH (09:17)
[2020-12-14] MEDS: THIAMINE 100 MG TABLET PO SCH (09:17)
[2020-12-14] MEDS: MULTIVITAMIN (CENTRUM) TABLET PO SCH (09:17)
[2020-12-14] MEDS: PANTOPRAZOLE 40 MG TABLET PO SCH (09:45)
[2020-12-14] MEDS ORDERED: GLUCAGON 1 MG VIAL IM PRN (10:51)
[2020-12-14] MEDS ORDERED: DEXTROSE 50% 25 GM/50 ML VIAL IV PRN (10:51)
[2020-12-15] MEDS: SODIUM CHLOR 0.45% KCL 20 MEQ 20 MEQ/1,000 ML BAG IV SCH (04:10)
[2020-12-15] MEDS: THIAMINE 100 MG TABLET PO SCH (09:07)
[2020-12-15] MEDS: FOLIC ACID 1 MG TABLET PO SCH (09:07)
[2020-12-15] MEDS: PANTOPRAZOLE 40 MG TABLET PO SCH (09:07)
[2020-12-15] MEDS: MULTIVITAMIN (CENTRUM) TABLET PO SCH (09:07)
[2020-12-15] MEDS: LACTULOSE 20 GM/30 ML UDCUP PO SCH (09:07)
[2020-12-15] MEDS: amLODIPine 10 MG TABLET PO SCH (09:07)
[2020-12-15 09:37] LABS: Basophils % 0.3 % (0.0-0.8); Eosinophils # 0.2 10*3/uL (0.0-0.87); Eosinophils % 2.5 % (0.00-10.9); Hematocrit 29.7 VOL% (42.0-52.0); Hemoglobin 9.7 GM/DL (14.0-18.0); Immature Granulocytes % 0.6 %; Immature Granulocytes Absolute 0.06 #; Lymphocytes # 1.2 10*3/uL (1.4-4.0); Mean Corpuscular HGB Conc 32.7 GM/DL (32-36); Mean Corpuscular Volume 85.8 FL (87-102); Monocytes % 5.5 % (1.7-12.7); Neutrophils % 79.1 % (38.7-73.9); Platelet Count 165 T/CUMM (130-400); Red Blood Count 3.46 MC/CUMM (3.8-5.5); Red Cell Distribution Width 15.5 % (9.3-17.3); White Blood Count 9.6 T/CUMM (4-12)
[2020-12-15 09:56] LABS: Bilirubin,Total 0.8 MG/DL (0.20-1.00); Calcium 8.2 MG/DL (8.5-10.1); Osmolality,Calculated 269.2 MOS/KG (273-304); Potassium 3.6 MMOL/L (3.5-5.1); Total Protein 7.1 G/DL (6.4-8.2)
[2020-12-15] MEDS ORDERED: SODIUM CHLORIDE 0.65% NASAL SPRAY 45 ML BOTTLE BOTH NARES PRN (10:37)
[2020-12-15] MEDS ORDERED: PANTOPRAZOLE 40 MG TABLET PO SCH (11:00)
[2020-12-15 11:57] VITALS: BP 116/62
== END 2020-12-15 15:23 | disposition home or self-care (01) | DRG 377 ==
LOC: EDUNIT# → EDBD → N.ED 23:37 → N.EDINP 12-12 04:37 → SUATTDRO 12-12 04:37 → N.4E 12-12 08:56
PROVIDERS: ADMIT Hospitalist; ATTEND Emergency Medicine

== ENCOUNTER 2021-01-24 17:48 | Inpatient (IN) ==
[2021-01-24 19:20] LABS: Basophils % 0.8 % (0.0-0.8); Eosinophils # 0.1 10*3/uL (0.0-0.87); Hematocrit 20.3 VOL% (42.0-52.0); Immature Granulocytes % 0.4 %; Immature Granulocytes Absolute 0.02 #; Lymphocytes # 0.6 10*3/uL (1.4-4.0); Lymphocytes % 12.5 % (21.2-54.2); Mean Corpuscular Volume 90.6 FL (87-102); Mean Platelet Volume 10.9 FL (9.6-12.0); Monocytes % 8.1 % (1.7-12.7); Neutrophils % 77.2 % (38.7-73.9); Platelet Count 177 T/CUMM (130-400); Red Blood Count 2.24 MC/CUMM (3.8-5.5); Red Cell Distribution Width 21.1 % (9.3-17.3)
[2021-01-24 19:24] LABS: Hemoglobin 6.3 GM/DL (14.0-18.0)
[2021-01-24 19:31] LABS: Albumin 2.5 G/DL (3.4-5.0); Bilirubin,Total 4.1 MG/DL (0.20-1.00); Calcium 7.8 MG/DL (8.5-10.1); Osmolality,Calculated 288.3 MOS/KG (273-304); Potassium 3.5 MMOL/L (3.5-5.1)
[2021-01-24] MEDS ORDERED: SODIUM CHLORIDE 0.9% 1,000 ML IV STA (19:46)
[2021-01-24] MEDS ORDERED: ONDANSETRON 4 MG/2 ML VIAL IV STA (19:46)
[2021-01-24 22:25] LABS: Bilirubin,Urine Negative (Negative); Blood, Urine Negative (Negative); Glucose,Urine (UA) Negative (Negative); Hyaline Casts,Urine 6 /LPF (0-3); Ketones,Urine 5 mg/dL (Negative); Mucus,Urine Occasional /LPF (Occasional); Nitrite,Urine Negative (Negative); Protein,Urine Negative; RBC,Urine 1 /HPF (0-4); Urine Appearance CLEAR (Clear); Urine Color Amber (Yellow); Urine Specific Gravity 1.017 (1.001-1.035)
[2021-01-24 22:30] LABS: Barbiturates Screen,Urine Negative (Negative); Benzodiazepines Screen,Urine Negative (Negative); Cannabinoid Screen,Urine Negative (Negative); Opiate Screen,Urine Negative (Negative); Phencyclidine Screen,Urine Negative (Negative)
[2021-01-24] MEDS ORDERED: SODIUM CHLORIDE 0.9% 1,000 ML IV PRN (23:40)
[2021-01-24] MEDS ORDERED: PANTOPRAZOLE 40 MG VIAL IV STA (23:46)
[2021-01-25] MEDS ORDERED: DEXTROSE 50% 25 GM/50 ML VIAL IV PRN (02:46)
[2021-01-25] MEDS ORDERED: GLUCAGON 1 MG VIAL IM PRN (02:46)
[2021-01-25] MEDS ORDERED: ONDANSETRON 4 MG/2 ML VIAL IV PRN (02:46)
[2021-01-25] MEDS ORDERED: MAGNESIUM SULF RIDER 2 GM/50 ML PREMIX IV PRN (02:46)
[2021-01-25] MEDS ORDERED: SODIUM CHLORIDE 0.9% 1,000 ML IV PRN ×2 (03:47→16:15)
[2021-01-25] MEDS: MORPHINE 2 MG/1 ML SYRINGE IV PRN (04:28)
[2021-01-25] MEDS ORDERED: LORazepam 2 MG/1 ML VIAL IV PRN (06:00)
[2021-01-25 06:26] LABS: INR 1.2; PT Patient Result 12.8 SECS (10.5-12.0)
[2021-01-25 06:50] LABS: Albumin 2.3 G/DL (3.4-5.0); Bilirubin,Total 4.2 MG/DL (0.20-1.00); Calcium 7.9 MG/DL (8.5-10.1); Osmolality,Calculated 278.5 MOS/KG (273-304); Potassium 3.3 MMOL/L (3.5-5.1); Total Protein 6.4 G/DL (6.4-8.2)
[2021-01-25 07:10] LABS: Basophils % 0.8 % (0.0-0.8); Eosinophils # 0.1 10*3/uL (0.0-0.87); Eosinophils % 1.3 % (0.00-10.9); Hematocrit 18.4 VOL% (42.0-52.0); Immature Granulocytes % 0.8 %; Immature Granulocytes Absolute 0.04 #; Lymphocytes # 0.9 10*3/uL (1.4-4.0); Lymphocytes % 18.1 % (21.2-54.2); Mean Corpuscular HGB Conc 32.6 GM/DL (32-36); Mean Corpuscular Volume 88.5 FL (87-102); Mean Platelet Volume 11.3 FL (9.6-12.0); Monocytes % 9.7 % (1.7-12.7); Neutrophils % 69.3 % (38.7-73.9); Platelet Count 150 T/CUMM (130-400); Red Blood Count 2.08 MC/CUMM (3.8-5.5); Red Cell Distribution Width 21.2 % (9.3-17.3); White Blood Count 4.8 T/CUMM (4-12)
[2021-01-25] MEDS: INSULIN REGULAR 100 UNIT/ML SUBCUT SCH ×4 (08:53→22:13)
[2021-01-25] MEDS: POTASSIUM CHLORIDE RIDER 10 MEQ/100 ML PREMIX IV PRN ×3 (09:04→15:50)
[2021-01-25] MEDS: PANTOPRAZOLE 40 MG VIAL IV SCH ×2 (09:04→21:07)
[2021-01-25 09:22] LABS: Hemoglobin 7.2 GM/DL (14.0-18.0)
[2021-01-25 13:37] LABS: Hepatitis B Core IgM Quant 0.11 Index; Hepatitis B Surface Ag Quant < 0.10 Index; Hepatitis B Surface Ag Result Non-Reactive (NonReactive); Hepatitis C Virus Ab Quant < 0.02 Index; Hepatitis C Virus Ab Result Non-Reactive (NonReactive)
[2021-01-25] MEDS ORDERED: MAGNESIUM SULF RIDER 4 GM/100 ML PREMIX IV ONE (14:00)
[2021-01-25] MEDS: LACTULOSE 20 GM/30 ML UDCUP PO SCH ×2 (14:29→21:07)
[2021-01-25 14:57] LABS: Hematocrit 22.5 VOL% (42.0-52.0)
[2021-01-25] MEDS: PIPERACILLIN/TAZOBACTAM 3,375 MG in SODIUM CHLORIDE 0.9% 100 ML IV SCH ×2 (16:53→23:53)
[2021-01-26] MEDS: POTASSIUM CHLORIDE RIDER 10 MEQ/100 ML PREMIX IV PRN (01:11)
[2021-01-26] MEDS: THIAMINE INJ 100 MG, FOLIC ACID INJ 1 MG, MULTIVITAMIN INJ 10 ML in SODIUM CHLORIDE 0.9... IV SCH ×2 (02:18→16:08)
[2021-01-26] MEDS: PIPERACILLIN/TAZOBACTAM 3,375 MG in SODIUM CHLORIDE 0.9% 100 ML IV SCH ×3 (06:16→23:12)
[2021-01-26 07:21] LABS: Basophils # 0.1 10*3/uL (0.0-0.2); Basophils % 1.4 % (0.0-0.8); Eosinophils # 0.2 10*3/uL (0.0-0.87); Eosinophils % 3.4 % (0.00-10.9); Hematocrit 28.4 VOL% (42.0-52.0); Immature Granulocytes % 0.8 %; Immature Granulocytes Absolute 0.05 #; Lymphocytes % 15.5 % (21.2-54.2); Mean Corpuscular HGB Conc 31.7 GM/DL (32-36); Mean Platelet Volume 11.2 FL (9.6-12.0); Monocytes % 7.7 % (1.7-12.7); Neutrophils % 71.2 % (38.7-73.9); Platelet Count 150 T/CUMM (130-400); Red Cell Distribution Width 18.3 % (9.3-17.3)
[2021-01-26 07:22] LABS: Red Blood Count 3.19 MC/CUMM (3.8-5.5); White Blood Count 6.5 T/CUMM (4-12)
[2021-01-26 07:27] LABS: INR 1.2; PT Patient Result 12.8 SECS (10.5-12.0)
[2021-01-26 07:36] LABS: Calcium 7.8 MG/DL (8.5-10.1); Osmolality,Calculated 270.8 MOS/KG (273-304); Potassium 3.9 MMOL/L (3.5-5.1)
[2021-01-26 07:39] LABS: Albumin 2.4 G/DL (3.4-5.0); Bilirubin,Total 5.9 MG/DL (0.20-1.00); Calcium 8.1 MG/DL (8.5-10.1); Potassium 3.8 MMOL/L (3.5-5.1); Total Protein 6.7 G/DL (6.4-8.2)
[2021-01-26] MEDS ORDERED: LACTATED RINGERS 1,000 ML IV SCH (08:00)
[2021-01-26] MEDS: PANTOPRAZOLE 40 MG VIAL IV SCH ×2 (08:31→20:16)
[2021-01-26] MEDS: LACTULOSE 20 GM/30 ML UDCUP PO SCH ×3 (08:32→20:17)
[2021-01-26] MEDS: INSULIN REGULAR 100 UNIT/ML SUBCUT SCH ×4 (08:32→22:23)
[2021-01-26] MEDS ORDERED: LIDOCAINE 2% 5 ML VIAL ONE (14:13)
[2021-01-26] MEDS ORDERED: propofoL 200 MG/20 ML VIAL IV ONE ×2 (14:13→14:27)
[2021-01-26] MEDS: SODIUM CHLORIDE 0.45% 1,000 ML IV SCH (15:23)
[2021-01-27] MEDS: MORPHINE 2 MG/1 ML SYRINGE IV PRN (01:03)
[2021-01-27 06:40] LABS: Basophils # 0.1 10*3/uL (0.0-0.2); Basophils % 0.8 % (0.0-0.8); Eosinophils # 0.2 10*3/uL (0.0-0.87); Eosinophils % 3.6 % (0.00-10.9); Hematocrit 27.6 VOL% (42.0-52.0); Hemoglobin 8.9 GM/DL (14.0-18.0); Immature Granulocytes % 0.5 %; Immature Granulocytes Absolute 0.03 #; Lymphocytes % 15.2 % (21.2-54.2); Mean Corpuscular HGB Conc 32.2 GM/DL (32-36); Mean Corpuscular Volume 89.3 FL (87-102); Mean Platelet Volume 10.5 FL (9.6-12.0); Monocytes % 9.4 % (1.7-12.7); Neutrophils % 70.5 % (38.7-73.9); Platelet Count 135 T/CUMM (130-400); Red Blood Count 3.09 MC/CUMM (3.8-5.5); Red Cell Distribution Width 17.9 % (9.3-17.3); White Blood Count 6.6 T/CUMM (4-12)
[2021-01-27] MEDS: THIAMINE INJ 100 MG, FOLIC ACID INJ 1 MG, MULTIVITAMIN INJ 10 ML in SODIUM CHLORIDE 0.9... IV SCH (06:41)
[2021-01-27 06:54] LABS: INR 1.1; PT Patient Result 12.4 SECS (10.5-12.0)
[2021-01-27 06:58] LABS: Albumin 2.3 G/DL (3.4-5.0); Bilirubin,Total 4.7 MG/DL (0.20-1.00); Calcium 7.8 MG/DL (8.5-10.1); Potassium 3.3 MMOL/L (3.5-5.1); Total Protein 6.6 G/DL (6.4-8.2)
[2021-01-27] MEDS: INSULIN REGULAR 100 UNIT/ML SUBCUT SCH (09:15)
[2021-01-27] MEDS: SODIUM CHLORIDE 0.45% 1,000 ML IV SCH ×2 (09:16→09:17)
[2021-01-27] MEDS: PIPERACILLIN/TAZOBACTAM 3,375 MG in SODIUM CHLORIDE 0.9% 100 ML IV SCH ×3 (09:40→23:51)
[2021-01-27] MEDS: PANTOPRAZOLE 40 MG VIAL IV SCH ×2 (09:40→20:56)
[2021-01-27] MEDS: LACTULOSE 20 GM/30 ML UDCUP PO SCH ×4 (09:44→20:55)
[2021-01-28] MEDS: THIAMINE INJ 100 MG, FOLIC ACID INJ 1 MG, MULTIVITAMIN INJ 10 ML in SODIUM CHLORIDE 0.9... IV SCH (03:23)
[2021-01-28 05:28] LABS: Basophils % 0.6 % (0.0-0.8); Eosinophils # 0.2 10*3/uL (0.0-0.87); Eosinophils % 3.8 % (0.00-10.9); Hematocrit 27.8 VOL% (42.0-52.0); Hemoglobin 8.9 GM/DL (14.0-18.0); Immature Granulocytes % 0.5 %; Immature Granulocytes Absolute 0.03 #; Lymphocytes # 1.1 10*3/uL (1.4-4.0); Lymphocytes % 17.1 % (21.2-54.2); Mean Corpuscular Volume 91.1 FL (87-102); Mean Platelet Volume 10.6 FL (9.6-12.0); Monocytes % 7.8 % (1.7-12.7); Neutrophils % 70.2 % (38.7-73.9); Platelet Count 146 T/CUMM (130-400); Red Blood Count 3.05 MC/CUMM (3.8-5.5); Red Cell Distribution Width 18.2 % (9.3-17.3); White Blood Count 6.4 T/CUMM (4-12)
[2021-01-28 05:53] LABS: Albumin 2.4 G/DL (3.4-5.0); Bilirubin,Total 3.8 MG/DL (0.20-1.00); Calcium 8.2 MG/DL (8.5-10.1); Potassium 3.3 MMOL/L (3.5-5.1); Total Protein 6.8 G/DL (6.4-8.2)
[2021-01-28] MEDS: PIPERACILLIN/TAZOBACTAM 3,375 MG in SODIUM CHLORIDE 0.9% 100 ML IV SCH ×3 (06:24→23:03)
[2021-01-28] MEDS: LACTULOSE 20 GM/30 ML UDCUP PO SCH ×3 (10:13→21:43)
[2021-01-28] MEDS: PANTOPRAZOLE 40 MG VIAL IV SCH ×2 (10:14→21:50)
[2021-01-28] MEDS: POTASSIUM CHLORIDE RIDER 10 MEQ/100 ML PREMIX IV PRN ×4 (10:15→14:20)
[2021-01-29] MEDS: PIPERACILLIN/TAZOBACTAM 3,375 MG in SODIUM CHLORIDE 0.9% 100 ML IV SCH ×3 (08:37→23:39)
[2021-01-29] MEDS: THIAMINE INJ 100 MG, FOLIC ACID INJ 1 MG, MULTIVITAMIN INJ 10 ML in SODIUM CHLORIDE 0.9... IV SCH (08:37)
[2021-01-29] MEDS: LACTULOSE 20 GM/30 ML UDCUP PO SCH ×3 (09:01→23:35)
[2021-01-29] MEDS: PANTOPRAZOLE 40 MG VIAL IV SCH ×2 (09:03→23:40)
[2021-01-30 05:34] LABS: Basophils # 0.1 10*3/uL (0.0-0.2); Basophils % 0.9 % (0.0-0.8); Eosinophils # 0.2 10*3/uL (0.0-0.87); Eosinophils % 3.2 % (0.00-10.9); Hematocrit 30.6 VOL% (42.0-52.0); Hemoglobin 9.5 GM/DL (14.0-18.0); Immature Granulocytes % 0.6 %; Immature Granulocytes Absolute 0.04 #; Lymphocytes # 1.1 10*3/uL (1.4-4.0); Lymphocytes % 16.5 % (21.2-54.2); Mean Corpuscular Volume 91.1 FL (87-102); Monocytes % 9.4 % (1.7-12.7); Neutrophils % 69.4 % (38.7-73.9); Platelet Count 143 T/CUMM (130-400); Red Blood Count 3.36 MC/CUMM (3.8-5.5); Red Cell Distribution Width 18.1 % (9.3-17.3); White Blood Count 6.5 T/CUMM (4-12)
[2021-01-30 06:36] LABS: Albumin 2.6 G/DL (3.4-5.0); Bilirubin,Total 2.6 MG/DL (0.20-1.00); Calcium 8.4 MG/DL (8.5-10.1); Osmolality,Calculated 272.8 MOS/KG (273-304); Potassium 3.6 MMOL/L (3.5-5.1); Total Protein 7.4 G/DL (6.4-8.2)
[2021-01-30] MEDS: LACTULOSE 20 GM/30 ML UDCUP PO SCH ×3 (10:26→22:42)
[2021-01-30] MEDS: THIAMINE INJ 100 MG, FOLIC ACID INJ 1 MG, MULTIVITAMIN INJ 10 ML in SODIUM CHLORIDE 0.9... IV SCH (10:26)
[2021-01-30] MEDS: PIPERACILLIN/TAZOBACTAM 3,375 MG in SODIUM CHLORIDE 0.9% 100 ML IV SCH ×3 (10:26→22:42)
[2021-01-30] MEDS: PANTOPRAZOLE 40 MG VIAL IV SCH (10:33)
[2021-01-30] MEDS: PANTOPRAZOLE 40 MG TABLET PO SCH (21:39)
[2021-01-31] MEDS: PIPERACILLIN/TAZOBACTAM 3,375 MG in SODIUM CHLORIDE 0.9% 100 ML IV SCH (06:44)
[2021-01-31 06:46] LABS: Basophils # 0.1 10*3/uL (0.0-0.2); Basophils % 0.9 % (0.0-0.8); Eosinophils # 0.2 10*3/uL (0.0-0.87); Eosinophils % 3.1 % (0.00-10.9); Hematocrit 29.9 VOL% (42.0-52.0); Hemoglobin 9.4 GM/DL (14.0-18.0); Immature Granulocytes % 0.7 %; Immature Granulocytes Absolute 0.04 #; Lymphocytes % 17.6 % (21.2-54.2); Mean Corpuscular HGB Conc 31.4 GM/DL (32-36); Mean Corpuscular Volume 90.1 FL (87-102); Mean Platelet Volume 11.2 FL (9.6-12.0); Monocytes % 9.4 % (1.7-12.7); Neutrophils % 68.3 % (38.7-73.9); Platelet Count 151 T/CUMM (130-400); Red Blood Count 3.32 MC/CUMM (3.8-5.5); White Blood Count 5.9 T/CUMM (4-12)
[2021-01-31 07:09] VITALS: BP 132/72
[2021-01-31 07:11] LABS: Calcium 8.4 MG/DL (8.5-10.1); Osmolality,Calculated 276.5 MOS/KG (273-304); Potassium 3.9 MMOL/L (3.5-5.1)
[2021-01-31] MEDS: LACTULOSE 20 GM/30 ML UDCUP PO SCH (08:47)
[2021-01-31] MEDS: PANTOPRAZOLE 40 MG TABLET PO SCH (08:47)
[2021-01-31] MEDS ORDERED: FOLIC ACID 1 MG TABLET PO SCH (09:00)
[2021-01-31] MEDS ORDERED: THIAMINE 100 MG TABLET PO SCH (09:00)
[2021-01-31] MEDS ORDERED: MULTIVITAMIN (CENTRUM) TABLET PO SCH (09:00)
== END 2021-01-31 11:33 | disposition home or self-care (01) | DRG 432 ==
LOC: EDBD → EDUNIT# → N.ED 17:48 → SUATTDRO 23:35 → N.EDINP 23:35 → N.5E 01-25 00:41
PROVIDERS: ADMIT Internal Medicine; ATTEND Internal Medicine
PROC: EGDWEBL (ICD-10-PCS; 2021-01-26 13:50)

== ENCOUNTER 2021-02-12 08:47 | Inpatient (IN) ==
[2021-02-12] MEDS ORDERED: SODIUM CHLORIDE 0.9% 1,000 ML IV PRN (13:40)
[2021-02-12] MEDS ORDERED: DEXTROSE 50% 25 GM/50 ML VIAL IV PRN (13:40)
[2021-02-12] MEDS ORDERED: GLUCAGON 1 MG VIAL IM PRN (13:40)
[2021-02-12] MEDS ORDERED: ACETAMINOPHEN 325 MG TABLET PO PRN (13:49)
[2021-02-12] MEDS ORDERED: ONDANSETRON 4 MG/2 ML VIAL IV PRN (13:49)
[2021-02-12] MEDS ORDERED: POTASSIUM CHLORIDE RIDER 10 MEQ/100 ML PREMIX IV PRN (14:13)
[2021-02-12] MEDS ORDERED: MAGNESIUM SULF RIDER 2 GM/50 ML PREMIX IV PRN (14:14)
[2021-02-12] MEDS ORDERED: MAGNESIUM SULF RIDER 4 GM/100 ML PREMIX IV PRN (14:14)
[2021-02-12 14:21] LABS: Basophils % 0.6 % (0.0-0.8); Eosinophils # 0.2 10*3/uL (0.0-0.87); Eosinophils % 2.5 % (0.00-10.9); Hematocrit 18.7 VOL% (42.0-52.0); Immature Granulocytes Absolute 0.07 #; Lymphocytes % 14.2 % (21.2-54.2); Mean Corpuscular Volume 90.8 FL (87-102); Mean Platelet Volume 10.4 FL (9.6-12.0); Monocytes % 6.8 % (1.7-12.7); NRBC # 0.02 10*3/uL; Neutrophils % 74.9 % (38.7-73.9); Platelet Count 131 T/CUMM (130-400); Red Blood Count 2.06 MC/CUMM (3.8-5.5); Red Cell Distribution Width 16.8 % (9.3-17.3); White Blood Count 6.8 T/CUMM (4-12)
[2021-02-12 14:22] LABS: Hemoglobin 5.8 GM/DL (14.0-18.0)
[2021-02-12 15:00] LABS: Albumin 2.6 G/DL (3.4-5.0); Calcium 7.6 MG/DL (8.5-10.1); Osmolality,Calculated 284.3 MOS/KG (273-304); Potassium 3.8 MMOL/L (3.5-5.1); Total Protein 6.8 G/DL (6.4-8.2)
[2021-02-12] MEDS: PANTOPRAZOLE 40 MG VIAL IV SCH (16:41)
[2021-02-12] MEDS: SODIUM CHLORIDE 0.9% 1,000 ML IV SCH (16:42)
[2021-02-12] MEDS: MULTIVITAMIN (CENTRUM) TABLET PO SCH (17:39)
[2021-02-12] MEDS: FOLIC ACID 1 MG TABLET PO SCH (17:40)
[2021-02-12] MEDS: ALBUTEROL/IPRATROPIUM 3 ML NEB RESP TX SCH (19:17)
[2021-02-13 00:49] LABS: Hematocrit 23.4 VOL% (42.0-52.0); Hemoglobin 7.3 GM/DL (14.0-18.0)
[2021-02-13 05:49] LABS: Basophils % 0.4 % (0.0-0.8); Eosinophils # 0.2 10*3/uL (0.0-0.87); Eosinophils % 2.6 % (0.00-10.9); Hematocrit 22.8 VOL% (42.0-52.0); Hemoglobin 7.1 GM/DL (14.0-18.0); Immature Granulocytes % 0.9 %; Immature Granulocytes Absolute 0.06 #; Lymphocytes # 0.9 10*3/uL (1.4-4.0); Lymphocytes % 13.4 % (21.2-54.2); Mean Corpuscular HGB Conc 31.1 GM/DL (32-36); Mean Corpuscular Volume 89.4 FL (87-102); Mean Platelet Volume 11.3 FL (9.6-12.0); Monocytes % 9.4 % (1.7-12.7); NRBC # 0.02 10*3/uL; Neutrophils % 73.3 % (38.7-73.9); Platelet Count 132 T/CUMM (130-400); Red Blood Count 2.55 MC/CUMM (3.8-5.5); Red Cell Distribution Width 16.7 % (9.3-17.3); White Blood Count 6.9 T/CUMM (4-12)
[2021-02-13] MEDS: ALBUTEROL/IPRATROPIUM 3 ML NEB RESP TX SCH (07:05)
[2021-02-13] MEDS: LACTATED RINGERS 1,000 ML IV SCH (08:10)
[2021-02-13] MEDS ORDERED: LIDOCAINE 2% 5 ML VIAL ONE (08:37)
[2021-02-13] MEDS ORDERED: propofoL 200 MG/20 ML VIAL IV ONE ×2 (08:37→08:47)
[2021-02-13] MEDS: FOLIC ACID 1 MG TABLET PO SCH (10:45)
[2021-02-13] MEDS: PANTOPRAZOLE 40 MG VIAL IV SCH (10:45)
[2021-02-13] MEDS: MULTIVITAMIN (CENTRUM) TABLET PO SCH (10:45)
[2021-02-13] MEDS: THIAMINE 200 MG/2 ML VIAL IM SCH (10:46)
[2021-02-13] MEDS: chlordiazePOXIDE 10 MG CAPSULE PO SCH ×3 (10:47→21:24)
[2021-02-13] MEDS: OCTREOTIDE 100 MCG/ML SYRINGE IV SCH ×2 (10:47→20:25)
[2021-02-13] MEDS: SODIUM CHLORIDE 0.9% 1,000 ML IV SCH ×2 (10:47→21:24)
[2021-02-13] MEDS: NICOTINE 21 MG/24 HR PATCH TRANSDERM SCH (12:22)
[2021-02-13] MEDS ORDERED: BISACODYL 5 MG TABLET PO ONE (15:00)
[2021-02-13] MEDS ORDERED: POLYETHYLENE GLYCOL POWDER 255 GM BOTTLE PO ONE (16:00)
[2021-02-14] MEDS: SODIUM CHLORIDE 0.9% 1,000 ML IV SCH ×3 (02:21→22:26)
[2021-02-14] MEDS ORDERED: POLYETHYLENE GLYCOL POWDER 255 GM BOTTLE PO ONE (05:00)
[2021-02-14 06:03] LABS: Basophils % 0.5 % (0.0-0.8); Eosinophils # 0.2 10*3/uL (0.0-0.87); Eosinophils % 2.7 % (0.00-10.9); Hematocrit 23.1 VOL% (42.0-52.0); Hemoglobin 7.4 GM/DL (14.0-18.0); Immature Granulocytes % 0.8 %; Immature Granulocytes Absolute 0.05 #; Lymphocytes # 0.9 10*3/uL (1.4-4.0); Lymphocytes % 15.1 % (21.2-54.2); Mean Corpuscular Volume 89.5 FL (87-102); Mean Platelet Volume 10.8 FL (9.6-12.0); Monocytes % 7.2 % (1.7-12.7); NRBC # 0.02 10*3/uL; Neutrophils % 73.7 % (38.7-73.9); Platelet Count 129 T/CUMM (130-400); Red Blood Count 2.58 MC/CUMM (3.8-5.5); Red Cell Distribution Width 16.9 % (9.3-17.3)
[2021-02-14 06:21] LABS: Albumin 2.7 G/DL (3.4-5.0); Bilirubin,Direct 0.91 MG/DL (0.0-0.20); Bilirubin,Indirect 0.6 MG/DL (0.0-1.0); Bilirubin,Total 1.5 MG/DL (0.20-1.00); Total Protein 6.9 G/DL (6.4-8.2)
[2021-02-14 06:27] LABS: Albumin 2.7 G/DL (3.4-5.0); Bilirubin,Total 2.1 MG/DL (0.20-1.00); Calcium 7.9 MG/DL (8.5-10.1); Total Protein 6.8 G/DL (6.4-8.2)
[2021-02-14 06:28] LABS: Osmolality,Calculated 276.4 MOS/KG (273-304); Potassium 3.4 MMOL/L (3.5-5.1)
[2021-02-14 06:41] LABS: Hypochromasia 1+
[2021-02-14 06:42] LABS: Microcytosis 1+; Ovalocytes Slight; Platelet Estimate Adequate; Polychromasia Slight
[2021-02-14] MEDS: chlordiazePOXIDE 10 MG CAPSULE PO SCH ×3 (09:10→22:07)
[2021-02-14] MEDS: OCTREOTIDE 100 MCG/ML SYRINGE IV SCH (09:56)
[2021-02-14] MEDS: PANTOPRAZOLE 40 MG VIAL IV SCH ×2 (10:13→22:08)
[2021-02-14] MEDS: LACTATED RINGERS 1,000 ML IV SCH (12:29)
[2021-02-14] MEDS: LACTATED RINGERS 500 ML IV SCH (12:30)
[2021-02-14] MEDS ORDERED: PHENYLEPHRINE 1 MG/10 ML SYRINGE IV ONE (13:55)
[2021-02-14] MEDS ORDERED: LIDOCAINE 2% 5 ML VIAL ONE (13:55)
[2021-02-14] MEDS ORDERED: propofoL 200 MG/20 ML VIAL IV ONE (13:55)
[2021-02-14] MEDS: THIAMINE 200 MG/2 ML VIAL IM SCH (15:40)
[2021-02-14] MEDS: NICOTINE 21 MG/24 HR PATCH TRANSDERM SCH (15:40)
[2021-02-14] MEDS: MULTIVITAMIN (CENTRUM) TABLET PO SCH (17:12)
[2021-02-14] MEDS: FOLIC ACID 1 MG TABLET PO SCH (17:12)
[2021-02-14 20:04] LABS: Hemoglobin 7.5 GM/DL (14.0-18.0)
[2021-02-15 07:26] LABS: Hematocrit 23.8 VOL% (42.0-52.0); Hemoglobin 7.5 GM/DL (14.0-18.0)
[2021-02-15 07:57] LABS: Basophils % 0.5 % (0.0-0.8); Eosinophils # 0.2 10*3/uL (0.0-0.87); Eosinophils % 2.7 % (0.00-10.9); Hematocrit 23.6 VOL% (42.0-52.0); Hemoglobin 7.4 GM/DL (14.0-18.0); Immature Granulocytes % 0.7 %; Immature Granulocytes Absolute 0.04 #; Lymphocytes # 0.9 10*3/uL (1.4-4.0); Lymphocytes % 15.7 % (21.2-54.2); Mean Corpuscular HGB Conc 31.4 GM/DL (32-36); Mean Corpuscular Volume 89.7 FL (87-102); Mean Platelet Volume 10.9 FL (9.6-12.0); Monocytes % 8.2 % (1.7-12.7); Neutrophils % 72.2 % (38.7-73.9); Platelet Count 133 T/CUMM (130-400); Red Blood Count 2.63 MC/CUMM (3.8-5.5); Red Cell Distribution Width 16.7 % (9.3-17.3); White Blood Count 5.9 T/CUMM (4-12)
[2021-02-15 08:07] LABS: Osmolality,Calculated 277.4 MOS/KG (273-304); Potassium 3.7 MMOL/L (3.5-5.1)
[2021-02-15] MEDS: LACTATED RINGERS 1,000 ML IV SCH (08:31)
[2021-02-15] MEDS: LACTATED RINGERS 500 ML IV SCH (08:31)
[2021-02-15] MEDS: chlordiazePOXIDE 10 MG CAPSULE PO SCH ×2 (08:31→16:27)
[2021-02-15] MEDS: NICOTINE 21 MG/24 HR PATCH TRANSDERM SCH (08:32)
[2021-02-15] MEDS: MULTIVITAMIN (CENTRUM) TABLET PO SCH (08:32)
[2021-02-15] MEDS: THIAMINE 200 MG/2 ML VIAL IM SCH (08:33)
[2021-02-15] MEDS: FOLIC ACID 1 MG TABLET PO SCH (08:33)
[2021-02-15] MEDS: PANTOPRAZOLE 40 MG VIAL IV SCH (08:34)
[2021-02-15 08:54] LABS: Anisocytosis 1+
[2021-02-15 08:55] LABS: Hypochromasia Slight
[2021-02-15 08:57] LABS: Polychromasia Slight
[2021-02-15 08:58] LABS: Platelet Estimate Decreased
[2021-02-15 10:54] LABS: Hematocrit 23.3 VOL% (42.0-52.0); Hemoglobin 7.4 GM/DL (14.0-18.0)
[2021-02-15 12:54] VITALS: BP 116/49
== END 2021-02-15 16:30 | disposition home or self-care (01) | DRG 381 ==
LOC: N.4E 11:05 → SUATTDRO 11:05
PROVIDERS: ADMIT Internal Medicine; ATTEND Internal Medicine

== ENCOUNTER 2022-04-15 09:47 | Inpatient (IN) ==
[2022-04-15] MEDS ORDERED: PANTOPRAZOLE INJ 80 MG in SODIUM CHLORIDE 0.9% 100 ML IV STA (10:09)
[2022-04-15] MEDS ORDERED: OCTREOTIDE 100 MCG/ML SYRINGE IV STA (10:09)
[2022-04-15] MEDS ORDERED: ONDANSETRON 4 MG/2 ML VIAL IV STA (10:09)
[2022-04-15 10:16] LABS: Basophils % 0.3 % (0.0-0.8); Hematocrit 19.8 VOL% (42.0-52.0); Immature Granulocytes % 0.8 %; Immature Granulocytes Absolute 0.06 #; Lymphocytes # 0.9 10*3/uL (1.4-4.0); Lymphocytes % 12.2 % (21.2-54.2); Mean Corpuscular HGB Conc 30.3 GM/DL (32-36); Mean Corpuscular Volume 76.4 FL (87-102); Mean Platelet Volume 11.5 FL (9.6-12.0); Monocytes # 0.5 10*3/uL (0.11-0.8); Monocytes % 6.7 % (1.7-12.7); Platelet Count 118 T/CUMM (130-400); Red Blood Count 2.59 MC/CUMM (3.8-5.5); Red Cell Distribution Width 18.3 % (9.3-17.3); White Blood Count 7.1 T/CUMM (4-12)
[2022-04-15] MEDS ORDERED: PANTOPRAZOLE 40 MG VIAL IV ONE (10:23)
[2022-04-15 10:24] LABS: INR 1.2; PT Patient Result 13.1 SECS (10.1-12.1); Partial Thromboplastin Time 26.8 SECS (23.7-32.9)
[2022-04-15] MEDS ORDERED: SODIUM CHLORIDE 0.9% 1,000 ML IV PRN ×2 (10:40→22:50)
[2022-04-15] MEDS: OCTREOTIDE 500 MCG in SODIUM CHLORIDE 0.9% 100 ML IV SCH ×2 (10:56→20:53)
[2022-04-15 11:04] LABS: Albumin 2.9 G/DL (3.4-5.0); Bilirubin,Total 0.8 MG/DL (0.20-1.00); Calcium 8.3 MG/DL (8.5-10.1); Osmolality,Calculated 303.6 MOS/KG (273-304); Potassium 3.5 MMOL/L (3.5-5.1); Total Protein 6.6 G/DL (6.4-8.2)
[2022-04-15] MEDS ORDERED: DOCUSATE SODIUM 100 MG CAPSULE PO PRN (12:00)
[2022-04-15] MEDS ORDERED: ONDANSETRON 4 MG/2 ML VIAL IV PRN (12:00)
[2022-04-15] MEDS ORDERED: LACTATED RINGERS 1,000 ML IV SCH ×2 (12:00→13:00)
[2022-04-15] MEDS ORDERED: ALUMINUM/MAGNES/SIMETH MAX STR 30 ML UDCUP PO PRN (12:00)
[2022-04-15] MEDS ORDERED: LACTULOSE 20 GM/30 ML UDCUP PO PRN (12:00)
[2022-04-15] MEDS ORDERED: ACETAMINOPHEN 325 MG TABLET PO PRN (12:00)
[2022-04-15] MEDS ORDERED: MAGNESIUM SULF RIDER 4 GM/100 ML PREMIX IV PRN (12:06)
[2022-04-15] MEDS ORDERED: MAGNESIUM SULF RIDER 2 GM/50 ML PREMIX IV PRN (12:06)
[2022-04-15] MEDS ORDERED: LORazepam 2 MG/1 ML VIAL IV PRN (12:07)
[2022-04-15] MEDS ORDERED: GLUCAGON 1 MG VIAL IM PRN (12:13)
[2022-04-15] MEDS ORDERED: DEXTROSE 10% 250 ML BAG IV PRN (12:14)
[2022-04-15 13:52] LABS: Hepatitis B Core IgM Quant 0.14 Index; Hepatitis B Surface Ag Quant < 0.10 Index; Hepatitis B Surface Ag Result Non-Reactive (NonReactive); Hepatitis C Virus Ab Quant 0.07 Index; Hepatitis C Virus Ab Result Non-Reactive (NonReactive)
[2022-04-15 13:58] LABS: Hematocrit 18.6 VOL% (42.0-52.0)
[2022-04-15 14:00] LABS: Hemoglobin 5.7 GM/DL (14.0-18.0)
[2022-04-15] MEDS ORDERED: INFLUENZA VIRUS VACCINE 0.5 ML SYRINGE IM ONE (14:04)
[2022-04-15] MEDS: INSULIN LISPRO 100 UNIT/ML SUBCUT SCH ×2 (20:07→23:15)
[2022-04-15] MEDS: THIAMINE 100 MG TABLET PO SCH (20:53)
[2022-04-15 22:31] LABS: Hematocrit 19.5 VOL% (42.0-52.0)
[2022-04-15 22:35] LABS: Hemoglobin 6.3 GM/DL (14.0-18.0)
[2022-04-16 05:23] LABS: Basophils % 0.4 % (0.0-0.8); Eosinophils # 0.1 10*3/uL (0.0-0.87); Eosinophils % 1.4 % (0.00-10.9); Hematocrit 23.5 VOL% (42.0-52.0); Hemoglobin 7.5 GM/DL (14.0-18.0); Immature Granulocytes % 0.4 %; Immature Granulocytes Absolute 0.02 #; Lymphocytes # 0.9 10*3/uL (1.4-4.0); Mean Corpuscular HGB Conc 31.9 GM/DL (32-36); Mean Corpuscular Volume 78.9 FL (87-102); Mean Platelet Volume 11.2 FL (9.6-12.0); Monocytes # 0.3 10*3/uL (0.11-0.8); Monocytes % 6.2 % (1.7-12.7); Neutrophils % 73.6 % (38.7-73.9); Platelet Count 95 T/CUMM (130-400); Red Blood Count 2.98 MC/CUMM (3.8-5.5); Red Cell Distribution Width 16.7 % (9.3-17.3)
[2022-04-16 05:44] LABS: Hypochromia Slight; Microcytosis Slight; Platelet Estimate Decreased
[2022-04-16 06:38] LABS: Bacteria,Urine Occasional /HPF (Few); Bilirubin,Urine Negative (Negative); Blood, Urine Negative (Negative); Glucose,Urine (UA) Negative (Negative); Ketones,Urine Negative (Negative); Mucus,Urine Occasional /LPF (Occasional); Nitrite,Urine Negative (Negative); Protein,Urine Negative (Negative); RBC,Urine 1 /HPF (0-4); Squamous Epithelial Cell,Urine Occasional /HPF (0-10); Urine Appearance CLEAR (Clear); Urine Color Yellow (Yellow); Urine Specific Gravity 1.018 (1.001-1.035); Urine Urobilinogen < 2.0 eU/dL (<2.0)
[2022-04-16] MEDS: OCTREOTIDE 500 MCG in SODIUM CHLORIDE 0.9% 100 ML IV SCH ×2 (06:40→18:45)
[2022-04-16] MEDS: INSULIN LISPRO 100 UNIT/ML SUBCUT SCH ×3 (06:41→18:46)
[2022-04-16 07:11] LABS: Albumin 2.8 G/DL (3.4-5.0); Bilirubin,Total 1.3 MG/DL (0.20-1.00); Calcium 7.9 MG/DL (8.5-10.1); Osmolality,Calculated 289.1 MOS/KG (273-304); Potassium 3.4 MMOL/L (3.5-5.1); Risk Ratio 3.17; Thyroid Stimulating Hormone 0.474 uIU/ml (0.358-3.74); Total Protein 6.3 G/DL (6.4-8.2); VLDL Cholesterol 20.4 MG/DL
[2022-04-16 07:46] LABS: Barbiturates Screen,Urine Negative (Negative); Benzodiazepines Screen,Urine Negative (Negative); Cannabinoid Screen,Urine Negative (Negative); Opiate Screen,Urine Negative (Negative); Phencyclidine Screen,Urine Negative (Negative)
[2022-04-16 10:09] LABS: Hematocrit 22.2 VOL% (42.0-52.0); Hemoglobin 7.2 GM/DL (14.0-18.0)
[2022-04-16] MEDS: LACTATED RINGERS 1,000 ML IV SCH (10:37)
[2022-04-16] MEDS ORDERED: propofoL 200 MG/20 ML VIAL IV ONE (10:49)
[2022-04-16] MEDS ORDERED: LIDOCAINE 2% 5 ML VIAL ONE (10:49)
[2022-04-16] MEDS: THIAMINE 100 MG TABLET PO SCH ×2 (12:23→21:03)
[2022-04-16] MEDS: PANTOPRAZOLE INJ 200 MG in SODIUM CHLORIDE 0.9% 250 ML IV SCH ×3 (12:24→12:33)
[2022-04-16 15:08] LABS: Hematocrit 22.4 VOL% (42.0-52.0); Hemoglobin 7.1 GM/DL (14.0-18.0)
[2022-04-16] MEDS ORDERED: MAGNESIUM SULF RIDER 2 GM/50 ML PREMIX IV PRN (16:03)
[2022-04-16] MEDS ORDERED: MAGNESIUM SULF RIDER 4 GM/100 ML PREMIX IV PRN (16:03)
[2022-04-16] MEDS ORDERED: POTASSIUM CHLORIDE 20 MEQ TABLET PO PRN (16:03)
[2022-04-16 22:00] LABS: Hematocrit 22.7 VOL% (42.0-52.0); Hemoglobin 7.4 GM/DL (14.0-18.0)
[2022-04-17] MEDS: INSULIN LISPRO 100 UNIT/ML SUBCUT SCH ×4 (00:39→17:19)
[2022-04-17 06:06] LABS: Basophils % 0.2 % (0.0-0.8); Eosinophils # 0.1 10*3/uL (0.0-0.87); Eosinophils % 2.5 % (0.00-10.9); Hematocrit 22.8 VOL% (42.0-52.0); Hemoglobin 7.4 GM/DL (14.0-18.0); Immature Granulocytes % 0.4 %; Immature Granulocytes Absolute 0.02 #; Lymphocytes # 0.9 10*3/uL (1.4-4.0); Lymphocytes % 17.6 % (21.2-54.2); Mean Corpuscular HGB Conc 32.5 GM/DL (32-36); Mean Corpuscular Volume 79.2 FL (87-102); Mean Platelet Volume 11.2 FL (9.6-12.0); Monocytes # 0.3 10*3/uL (0.11-0.8); Monocytes % 5.6 % (1.7-12.7); Neutrophils % 73.7 % (38.7-73.9); Platelet Count 93 T/CUMM (130-400); Red Blood Count 2.88 MC/CUMM (3.8-5.5); Red Cell Distribution Width 16.5 % (9.3-17.3); White Blood Count 4.8 T/CUMM (4-12)
[2022-04-17 06:30] LABS: Hypochromia 1+; Microcytosis 1+; Platelet Estimate Decreased
[2022-04-17 06:41] LABS: Albumin 2.7 G/DL (3.4-5.0); Bilirubin,Total 0.9 MG/DL (0.20-1.00); Calcium 8.2 MG/DL (8.5-10.1); Osmolality,Calculated 281.4 MOS/KG (273-304); Potassium 3.5 MMOL/L (3.5-5.1); Total Protein 6.1 G/DL (6.4-8.2)
[2022-04-17] MEDS: PANTOPRAZOLE 40 MG VIAL IV SCH ×2 (09:40→20:50)
[2022-04-17] MEDS: OCTREOTIDE 500 MCG in SODIUM CHLORIDE 0.9% 100 ML IV SCH ×2 (09:41→20:47)
[2022-04-17] MEDS: LACTATED RINGERS 1,000 ML IV SCH (11:26)
[2022-04-17] MEDS: THIAMINE 100 MG TABLET PO SCH ×2 (12:08→20:47)
[2022-04-18] MEDS: INSULIN LISPRO 100 UNIT/ML SUBCUT SCH ×3 (02:36→12:31)
[2022-04-18 05:14] LABS: Basophils % 0.2 % (0.0-0.8); Eosinophils # 0.2 10*3/uL (0.0-0.87); Eosinophils % 2.6 % (0.00-10.9); Hematocrit 22.8 VOL% (42.0-52.0); Hemoglobin 7.2 GM/DL (14.0-18.0); Immature Granulocytes % 0.5 %; Immature Granulocytes Absolute 0.03 #; Lymphocytes # 0.9 10*3/uL (1.4-4.0); Lymphocytes % 14.9 % (21.2-54.2); Mean Corpuscular HGB Conc 31.6 GM/DL (32-36); Mean Corpuscular Volume 80.9 FL (87-102); Mean Platelet Volume 10.7 FL (9.6-12.0); Monocytes # 0.3 10*3/uL (0.11-0.8); Monocytes % 4.7 % (1.7-12.7); Neutrophils % 77.1 % (38.7-73.9); Platelet Count 100 T/CUMM (130-400); Red Blood Count 2.82 MC/CUMM (3.8-5.5); Red Cell Distribution Width 16.7 % (9.3-17.3); White Blood Count 6.2 T/CUMM (4-12)
[2022-04-18 05:35] LABS: Hypochromia Slight; Microcytosis Slight
[2022-04-18] MEDS: OCTREOTIDE 500 MCG in SODIUM CHLORIDE 0.9% 100 ML IV SCH ×2 (09:27→09:30)
[2022-04-18] MEDS: PANTOPRAZOLE 40 MG VIAL IV SCH (09:30)
[2022-04-18] MEDS: LACTATED RINGERS 1,000 ML IV SCH (09:31)
[2022-04-18] MEDS: THIAMINE 100 MG TABLET PO SCH (09:31)
[2022-04-18 12:45] VITALS: BP 132/83
== END 2022-04-18 13:17 | disposition home or self-care (01) | DRG 432 ==
LOC: EDUNIT# → N.ED 09:47 → SUATTDRO 12:00 → N.5E 12:00
PROVIDERS: ADMIT Emergency Medicine; ATTEND Internal Medicine
PROC: EGDWEBL (ICD-10-PCS; 2022-04-16 11:50)

== ENCOUNTER 2022-07-15 00:37 | Inpatient (IN) ==
[2022-07-15] MEDS ORDERED: KETOROLAC 30 MG/1 ML VIAL IV STA (01:22)
[2022-07-15] MEDS ORDERED: METOPROLOL TARTRATE 5 MG/5 ML VIAL IV STA (01:22)
[2022-07-15] MEDS ORDERED: ASPIRIN 325 MG TABLET PO STA (01:22)
[2022-07-15] MEDS ORDERED: ONDANSETRON 4 MG/2 ML VIAL IV STA (01:22)
[2022-07-15 01:49] LABS: Basophils % 0.8 % (0.0-0.8); Eosinophils % 1.5 % (0.00-10.9); Immature Granulocytes % 0.8 %; Immature Granulocytes Absolute 0.02 #; Lymphocytes # 0.4 10*3/uL (1.4-4.0); Lymphocytes % 15.6 % (21.2-54.2); Mean Corpuscular HGB Conc 28.4 GM/DL (32-36); Mean Corpuscular Volume 67.6 FL (87-102); Monocytes # 0.3 10*3/uL (0.11-0.8); Monocytes % 12.2 % (1.7-12.7); Neutrophils % 69.1 % (38.7-73.9); Platelet Count 61 T/CUMM (130-400); Red Blood Count 2.81 MC/CUMM (3.8-5.5); Red Cell Distribution Width 20.8 % (9.3-17.3); White Blood Count 2.63 T/CUMM (4-12)
[2022-07-15] MEDS ORDERED: FUROSEMIDE 40 MG/4 ML VIAL IV STA (01:49)
[2022-07-15 01:54] LABS: Hemoglobin 5.4 GM/DL (14.0-18.0)
[2022-07-15] MEDS ORDERED: SODIUM CHLORIDE 0.9% 1,000 ML IV PRN (01:56)
[2022-07-15] MEDS ORDERED: FUROSEMIDE 40 MG/4 ML VIAL IV PRN (02:00)
[2022-07-15] MEDS ORDERED: MAGNESIUM SULF RIDER 2 GM/50 ML PREMIX IV STA ×2 (02:02→04:05)
[2022-07-15 02:07] LABS: INR 1.2
[2022-07-15 02:13] LABS: Albumin 3.4 G/DL (3.4-5.0); Bilirubin,Total 0.8 MG/DL (0.20-1.00); Calcium 7.9 MG/DL (8.5-10.1); Osmolality,Calculated 280.1 MOS/KG (273-304); Potassium 3.2 MMOL/L (3.5-5.1); Total Protein 7.7 G/DL (6.4-8.2)
[2022-07-15] MEDS ORDERED: PANTOPRAZOLE 40 MG VIAL IV STA (02:26)
[2022-07-15 03:25] LABS: Hypochromia 1+; Microcytosis 1+; Platelet Estimate Decreased
[2022-07-15] MEDS ORDERED: LORazepam 2 MG/1 ML VIAL IV PRN (03:44)
[2022-07-15] MEDS ORDERED: MORPHINE 2 MG/1 ML SYRINGE IV PRN (03:44)
[2022-07-15] MEDS ORDERED: hydrALAZINE 20 MG/1 ML VIAL IV PRN (03:44)
[2022-07-15] MEDS ORDERED: ALBUTEROL/IPRATROPIUM 3 ML NEB RESP TX PRN (04:20)
[2022-07-15] MEDS: POTASSIUM CHLORIDE RIDER 10 MEQ/100 ML PREMIX IV SCH ×2 (06:00→07:22)
[2022-07-15] MEDS: lisinopriL 20 MG TABLET PO SCH (08:55)
[2022-07-15 10:02] LABS: Basophils % 1.1 % (0.0-0.8); Eosinophils # 0.1 10*3/uL (0.0-0.87); Eosinophils % 2.2 % (0.00-10.9); Hematocrit 24.4 VOL% (42.0-52.0); Hemoglobin 7.2 GM/DL (14.0-18.0); Immature Granulocytes % 1.1 %; Immature Granulocytes Absolute 0.03 #; Lymphocytes # 0.6 10*3/uL (1.4-4.0); Lymphocytes % 20.5 % (21.2-54.2); Mean Corpuscular HGB Conc 29.5 GM/DL (32-36); Mean Corpuscular Volume 71.3 FL (87-102); Monocytes # 0.4 10*3/uL (0.11-0.8); Monocytes % 13.4 % (1.7-12.7); Neutrophils % 61.7 % (38.7-73.9); Red Blood Count 3.42 MC/CUMM (3.8-5.5); White Blood Count 2.68 T/CUMM (4-12)
[2022-07-15 10:03] LABS: Platelet Count 56 T/CUMM (130-400)
[2022-07-15] MEDS: ACETAMINOPHEN 325 MG TABLET PO PRN (12:01)
[2022-07-15 15:15] LABS: Basophils % 1.1 % (0.0-0.8); Eosinophils # 0.1 10*3/uL (0.0-0.87); Eosinophils % 1.8 % (0.00-10.9); Hematocrit 23.6 VOL% (42.0-52.0); Immature Granulocytes % 0.7 %; Immature Granulocytes Absolute 0.02 #; Lymphocytes # 0.5 10*3/uL (1.4-4.0); Mean Corpuscular HGB Conc 29.7 GM/DL (32-36); Mean Corpuscular Volume 70.7 FL (87-102); Monocytes # 0.4 10*3/uL (0.11-0.8); Monocytes % 14.1 % (1.7-12.7); Neutrophils % 64.3 % (38.7-73.9); Platelet Count 53 T/CUMM (130-400); Red Blood Count 3.34 MC/CUMM (3.8-5.5); Red Cell Distribution Width 22.6 % (9.3-17.3); White Blood Count 2.84 T/CUMM (4-12)
[2022-07-15 15:33] LABS: Calcium 7.7 MG/DL (8.5-10.1); Osmolality,Calculated 274.7 MOS/KG (273-304); Potassium 3.3 MMOL/L (3.5-5.1)
[2022-07-15 15:45] LABS: Platelet Estimate Decreased
[2022-07-15 15:46] LABS: Elliptocytes 1+; Hypochromia 2+
[2022-07-15 15:47] LABS: Polychromasia Slight
[2022-07-15] MEDS ORDERED: POTASSIUM CHLORIDE 20 MEQ TABLET PO ONE (15:59)
[2022-07-15] MEDS: MAGNESIUM SULF RIDER 2 GM/50 ML PREMIX IV SCH ×2 (17:20→20:00)
[2022-07-15] MEDS ORDERED: INFLUENZA VIRUS VACCINE 0.5 ML SYRINGE IM ONE (17:54)
[2022-07-15] MEDS: ONDANSETRON 4 MG/2 ML VIAL IV PRN (18:20)
[2022-07-15] MEDS: PANTOPRAZOLE 40 MG VIAL IV SCH (20:40)
[2022-07-16 05:40] LABS: Basophils % 0.6 % (0.0-0.8); Eosinophils # 0.1 10*3/uL (0.0-0.87); Eosinophils % 3.7 % (0.00-10.9); Hematocrit 24.4 VOL% (42.0-52.0); Hemoglobin 7.2 GM/DL (14.0-18.0); Immature Granulocytes % 0.8 %; Immature Granulocytes Absolute 0.03 #; Lymphocytes # 0.7 10*3/uL (1.4-4.0); Lymphocytes % 20.6 % (21.2-54.2); Mean Corpuscular HGB Conc 29.5 GM/DL (32-36); Mean Corpuscular Volume 72.2 FL (87-102); Monocytes # 0.4 10*3/uL (0.11-0.8); Monocytes % 11.5 % (1.7-12.7); NRBC # 0.02 10*3/uL; Neutrophils % 62.8 % (38.7-73.9); Platelet Count 54 T/CUMM (130-400); Red Blood Count 3.38 MC/CUMM (3.8-5.5); Red Cell Distribution Width 22.9 % (9.3-17.3); White Blood Count 3.55 T/CUMM (4-12)
[2022-07-16 05:47] LABS: Hypochromia 2+
[2022-07-16 05:48] LABS: Anisocytosis 1+; Microcytosis 1+; Ovalocytes Slight; Platelet Estimate Decreased; Polychromasia Slight
[2022-07-16 05:57] LABS: Calcium 8.1 MG/DL (8.5-10.1); Potassium 3.8 MMOL/L (3.5-5.1)
[2022-07-16] MEDS ORDERED: LACTATED RINGERS 1,000 ML IV SCH (07:00)
[2022-07-16] MEDS: PANTOPRAZOLE 40 MG VIAL IV SCH ×2 (09:36→20:42)
[2022-07-16] MEDS ORDERED: ETOMIDATE 20 MG/10 ML VIAL IV ONE (14:20)
[2022-07-16] MEDS ORDERED: propofoL 200 MG/20 ML VIAL IV ONE ×3 (14:20→14:37)
[2022-07-16] MEDS ORDERED: LIDOCAINE 2% 5 ML VIAL ONE (14:20)
[2022-07-16] MEDS: THIAMINE 100 MG TABLET PO SCH (15:35)
[2022-07-16] MEDS: MULTIVITAMIN (CENTRUM) TABLET PO SCH (15:35)
[2022-07-16] MEDS: lisinopriL 20 MG TABLET PO SCH (15:35)
[2022-07-16] MEDS: FOLIC ACID 1 MG TABLET PO SCH (15:36)
[2022-07-17 04:55] LABS: Basophils % 0.5 % (0.0-0.8); Eosinophils # 0.2 10*3/uL (0.0-0.87); Eosinophils % 4.4 % (0.00-10.9); Hematocrit 24.4 VOL% (42.0-52.0); Hemoglobin 7.1 GM/DL (14.0-18.0); Immature Granulocytes % 0.5 %; Immature Granulocytes Absolute 0.02 #; Lymphocytes # 0.8 10*3/uL (1.4-4.0); Lymphocytes % 19.2 % (21.2-54.2); Mean Corpuscular HGB Conc 29.1 GM/DL (32-36); Mean Corpuscular Volume 73.5 FL (87-102); Monocytes # 0.4 10*3/uL (0.11-0.8); Monocytes % 10.2 % (1.7-12.7); Neutrophils % 65.2 % (38.7-73.9); Platelet Count 49 T/CUMM (130-400); Red Blood Count 3.32 MC/CUMM (3.8-5.5); Red Cell Distribution Width 22.7 % (9.3-17.3); White Blood Count 4.12 T/CUMM (4-12)
[2022-07-17 05:25] LABS: Hypochromia 1+; Microcytosis 1+
[2022-07-17 05:26] LABS: Ovalocytes Slight; Polychromasia Slight; Target Cells Slight
[2022-07-17 05:27] LABS: Platelet Estimate Decreased
[2022-07-17 08:48] VITALS: BP 131/67
[2022-07-17] MEDS: ACETAMINOPHEN 325 MG TABLET PO PRN (09:37)
[2022-07-17] MEDS: ONDANSETRON 4 MG/2 ML VIAL IV PRN (09:37)
[2022-07-17] MEDS ORDERED: FLUTICASONE 50 MCG NASAL SPRAY 16 GM BOTTLE BOTH NARES SCH (09:45)
[2022-07-17] MEDS: lisinopriL 20 MG TABLET PO SCH (11:20)
[2022-07-17] MEDS: FOLIC ACID 1 MG TABLET PO SCH (11:21)
[2022-07-17] MEDS: THIAMINE 100 MG TABLET PO SCH (11:21)
[2022-07-17] MEDS: PANTOPRAZOLE 40 MG VIAL IV SCH (11:21)
[2022-07-17] MEDS: MULTIVITAMIN (CENTRUM) TABLET PO SCH (11:21)
== END 2022-07-17 12:05 | disposition home or self-care (01) | DRG 809 ==
LOC: EDBD → EDUNIT# → N.ED 00:37 → SUATTDRO 03:44 → N.EDINP 03:44 → N.TELES 16:49
PROVIDERS: ADMIT Emergency Medicine; ATTEND Internal Medicine
PROC: EGDWEBL (ICD-10-PCS; 2022-07-16 12:20)